=== PATIENT | male | born 1980 | race Caucasian/White ===

== ENCOUNTER 2017-05-19 14:53 | Emergency (ER) | payer OTHER ==
[~2017-05-19 14:53] MED LIST: ZOFR4TAB3 SL
[2017-05-19 15:41] VITALS: BP 139/84; PULSE 115; RESP 20; TEMP 99; O2SAT 99
[2017-05-19] MEDS ORDERED: CEPHALEXIN MONOHYDRATE 500 MG CAP PO ONE (20:30)
[2017-05-19] MEDS ORDERED: SULFAMETHOXAZOLE-TRIMETHOPRIM DS 800-160 MG TAB PO ONE (20:30)
[2017-05-19] MEDS ORDERED: LIDOCAINE HCL 1% PF 30 ML VIAL INFIL ONE (20:30)
[2017-05-19] MEDS ORDERED: IBUPROFEN 800 MG TAB PO ONE (20:30)
--- NOTE | 2017-05-19 20:44 | PD ---
HPI Chief Complaint: Skin Problem Time Seen by Provider: 20:15 Travel History International Travel<30 days: No Contact w/Intl Traveler<30days: No Traveled to known affect area: No History of Present Illness HPI 36-year-old male with PMH of neurofibromatosis, blindness presents to the ED for evaluation of 7/10 pain of right arm and left back. Patient states that he noted skin changes in this area. He cannot identify no acute injury. He denies history of MRSA. Denies fever, chills, nausea, vomiting. No treatment attempts at home. PFSH Past Medical History Neurologic: Yes (NEUROFIBROMYTOSIS) Past Surgical History Oral Surgery: Yes Other Surgery: Yes (FIXED DETACHED RETINA, SKIN GRAFTS, CYST DRAINED) Social History Alcohol Use: Yes (1-4 BEER A DAY) Tobacco Use: Yes (1 PPD) Substance Use: Yes (MARIJUANA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 Reported Meds & Prescriptions Reported Meds & Active Scripts Active Ibuprofen 800 Mg Tab 800 Mg PO Q8H PRN Keflex (Cephalexin) 500 Mg Cap 500 Mg PO Q6H 7 Days Bactrim DS (Sulfamethoxazole-Trimethoprim) 800-160 Mg Tab 1 Tab PO BID Zofran ODT (Ondansetron HCl) 4 Mg Tab 4 Mg SL Q6HR PRN FOR NAUSEA/VOMITING Review of Systems Except as stated in HPI: all other systems reviewed are Neg Physical Exam Narrative GENERAL: Well-nourished, well-developed patient. SKIN: Focused skin assessment warm/dry. Scattered polypoid skin lesions over the entire skin surface. SKIN: There is an indurated area in the posterior right upper arm which measures about 2 cm in diameter. It is fluctuant but there is no pointing or drainage. There is a zone of inflammation around it but no lymphangitis SKIN: There is an indurated area in the left lower back which measures about 2 cm in diameter. It is fluctuant but there is no pointing or drainage. There is a zone of inflammation around it but no lymphangitis. HEAD: Normocephalic. EYES: No scleral icterus. No injection or drainage. NECK: Supple, trachea midline. No JVD or lymphadenopathy. CARDIOVASCULAR: Regular rate and rhythm without murmurs, gallops, or rubs. RESPIRATORY: Breath sounds equal bilaterally. No accessory muscle use. GASTROINTESTINAL: Abdomen soft, non-tender, nondistended. MUSCULOSKELETAL: No cyanosis, or edema. BACK: Nontender without obvious deformity. No CVA tenderness. Data Data Last Documented VS Vital Signs Date Time Temp Pulse Resp B/P (MAP) Pulse Ox O2 Delivery O2 Flow Rate FiO2 05/19/17 15:41 99.0 115 20 139/84 (102) 99 Orders Orders Lidocaine Pf 1% Inj (Xylocaine-Mpf 1% In (05/19/17 20:30) Abscess Culture And Gram Stain (05/19/17 20:30) Abscess Culture And Gram Stain (05/19/17 20:30) Ibuprofen (Motrin) (05/19/17 20:30) Sulfamet-Trimeth Ds 800-160 Mg (Bactrim (05/19/17 20:30) Cephalexin (Keflex) (05/19/17 20:30) Ed Discharge Order (05/19/17 21:17) [facility] Medical Decision Making Medical Screen Exam Complete: Yes Emergency Medical Condition: Yes Differential Diagnosis Folliculitis versus abscess versus cellulitis versus other Narrative Course 36-year-old male with PMH of neurofibromatosis, blindness presents to the ED for evaluation of 7/10 pain of right arm and left back. Patient states that he noted skin changes in this area. He cannot identify no acute injury. He denies history of MRSA. Denies fever, chills, nausea, vomiting. Patient afebrile on presentation. On exam the patient has polypoid nodules all over the entire skin surface. There is a small abscess on the right arm and another on the left lower back. Abscess I&D was performed. Please see my procedure note for details. Patient's prescribed Bactrim and Keflex, first dose administered in the ED's. He is instructed to return to the ED in 48 hours for wound recheck and packing removal. He indicated understanding of instructions. He is agreeable to the care plan. He is stable and discharged home. Procedures Procedure Narrative INCISION AND DRAINAGE OF ABSCESS: The area was prepped and was sterilely draped. A subcutaneous wheal of 1 % Xylocaine with a total number two mL was used to anesthetize the area properly. A number 11 scalpel was used to make a 1 -cm incision across the area of the abscess. The abscess was drained, complex loculations were broken down, and irrigated with normal saline. Cultures were obtained. Quarter inch iodoform packing was placed in the wound. Sterile dressing applied. Patient advised to have packing removed in two days. INCISION AND DRAINAGE OF ABSCESS: The area was prepped and was sterilely draped. A subcutaneous wheal of 1 % Xylocaine with a total number two mL was used to anesthetize the area properly. A number 11 scalpel was used to make a 1 -cm incision across the area of the abscess. The abscess was drained, complex loculations were broken down, and irrigated with normal saline. Cultures were obtained. Quarter inch iodoform packing was placed in the wound. Sterile dressing applied. Patient advised to have packing removed in two days. Diagnosis Primary Impression: Abscess Referrals: Primary Care Physician Additional Instructions: Keep the dressing on for the next 48 hours. Return to the ED in 48 hours for wound recheck and packing removal. Begin antibiotics tonight and take them until every pill is gone. Ibuprofen as prescribed as needed for pain. Return to the ED for worsening symptoms or any urgent or emergent medical condition. Med/Other Pt SpecificInfo: Prescription(s) given Scripts Ibuprofen (Ibuprofen) 800 Mg Tab 800 MG PO Q8H Y for Pain/Inflammation, #15 TAB 0 Refills Prov: Raymond Mcgee MD 05/19/17 Cephalexin (Keflex) 500 Mg Cap 500 MG PO Q6H for Infection for 7 Days, #28 CAP 0 Refills Prov: Raymond Mcgee MD 05/19/17 Sulfamethoxazole-Trimethoprim (Bactrim DS) 800-160 Mg Tab 1 TAB PO BID for Infection, #14 TAB 0 Refills Prov: Raymond Mcgee MD 05/19/17 Disposition: 01 DISCHARGE HOME Condition: Stable Valeria Douglass May 19, 2017 20:44
[2017-05-19] MEDS ORDERED: CEPH-460 PO (20:45)
[2017-05-19] MEDS ORDERED: BACT800T5 PO (20:45)
[2017-05-19] MEDS ORDERED: IBUP1TAB7 PO (20:45)
== END 2017-05-19 21:28 | disposition home or self-care (01) ==
LOC: NEPK 14:53
DX: L02.413 Cutaneous abscess of right upper limb (principal); L02.212 Cutaneous abscess of back [any part, except buttock and flank]; B95.62 Methicillin resistant Staphylococcus aureus infection as the cause of diseases classified elsewhere; Q85.00 Neurofibromatosis, unspecified; H54.7 Unspecified visual loss; F17.200 Nicotine dependence, unspecified, uncomplicated; F12.90 Cannabis use, unspecified, uncomplicated
CPT/HCPCS: 10061; 86403; 87070; 87186; 87205

== ENCOUNTER 2017-05-21 12:08 | Emergency (ER) | payer OTHER ==
[~2017-05-21] VITALS: Ht 182.9 cm; Wt 104.8 kg
[~2017-05-21 12:08] MED LIST changes: +BACT800T5 PO; +CEPH-460 PO; +IBUP1TAB7 PO
[2017-05-21 12:10] VITALS: BP 138/71; PULSE 78; RESP 16; TEMP 97.5; O2SAT 99
--- NOTE | 2017-05-21 12:37 | PD ---
HPI Chief Complaint: Wound/Suture/Staple Re-Check Time Seen by Provider: 12:25 Travel History International Travel<30 days: No Contact w/Intl Traveler<30days: No Traveled to known affect area: No History of Present Illness HPI 36-year-old male presents to the emergency department for abscess recheck and packing removal. He had abscesses incised and drained to his right upper arm and left lower back on May 19. He has been taking Keflex and Bactrim as prescribed. He denies fever or vomiting. States he still having pain to the areas and rates pain 5/10. Describes it as a throbbing sensation. Has not been taking any medications or trying any treatments for his pain. Says he does not want to take anything for his pain. No known aggravating or relieving factors. No primary care provider. Allergies to lobster. History of neurofibromatosis and blindness. Has no other medical complaints. No other modifying factors or associated signs and symptoms. PFSH Past Medical History Diminished Hearing: No Neurologic: Yes (NEUROFIBROMYTOSIS) Radiation Therapy: Yes Tetanus Vaccination: > 5 Years Influenza Vaccination: No Past Surgical History Oral Surgery: Yes Other Surgery: Yes (FIXED DETACHED RETINA, SKIN GRAFTS, CYST DRAINED) Social History Alcohol Use: Yes (Occ.) Tobacco Use: Yes (1-2 PPD) Substance Use: Yes (Marijuana occ. 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 No lymphangitis. HEAD: Atraumatic. Normocephalic. EYES: Pupils equal and round. No scleral icterus. No injection or drainage. ENT: Mucosa pink and moist. Airway patent. NECK: Trachea midline. CARDIOVASCULAR: Regular rate. RESPIRATORY: No accessory muscle use. GASTROINTESTINAL: Rounded. MUSCULOSKELETAL: No obvious deformities. No clubbing. No cyanosis. No edema. NEUROLOGICAL: Awake and alert. Oriented 3. No obvious cranial nerve deficits. Motor grossly within normal limits. Normal speech. PSYCHIATRIC: Appropriate mood and affect; insight and judgment normal. Data Data Last Documented VS Vital Signs Date Time Temp Pulse Resp B/P (MAP) Pulse Ox O2 Delivery O2 Flow Rate FiO2 05/21/17 12:10 97.5 78 16 138/71 (93) 99 Orders Orders Wound Care (05/21/17 12:37) Ed Discharge Order (05/21/17 12:37) MDM Medical Decision Making Medical Screen Exam Complete: Yes Emergency Medical Condition: Yes Medical Record Reviewed: Yes Differential Diagnosis Encounter for abscess recheck, encounter for abscess packing removal, wound recheck, medical clearance Narrative Course 36-year-old male presents for abscess recheck and packing removal after incision and drainage on May 19. I reviewed his medical record and his wound culture grew out MRSA. I informed the patient of this finding and discussed MRSA. Iodoform packing removed. Patient tolerated well. Instructed patient he can stop Keflex. Instructed to continue Bactrim. Clean dressings applied to both areas. Instructed patient to follow up with primary care provider. Patient verbalizes understanding and agreement with treatment plan. Patient is medically cleared and stable for discharge. Discussed reasons to return to the emergency department. Patient agrees with treatment plan. The patients vital signs are stable and the patient is stable for outpatient follow-up and treatment. Patient discharged home, stable and in no acute distress. Diagnosis Primary Impression: Encounter for recheck of abscess following incision and drainage Additional Impression: Encounter for abscess packing removal Referrals: [facility] Primary Care Physician Patient Instructions: Abscess (ED), Abscess Follow-up (ED), General Instructions Additional Instructions: You may Stop taking Keflex Continue Bactrim and complete full course of antibiotic Warm compresses to the affected area Keep area clean and dry Ibuprofen or Tylenol as directed and as needed for pain and inflammation Follow-up with primary care provider Return to emergency department immediately with worsening of symptoms Med/Other Pt SpecificInfo: Med Stopped, No Meds Exist/No RX given Disposition: DISCHARGE HOME Condition: Stable Melva Goodrich May 21, 2017 12:37
== END 2017-05-21 12:52 | disposition home or self-care (01) ==
LOC: PHEFT 12:08
DX: Z48.817 Encounter for surgical aftercare following surgery on the skin and subcutaneous tissue (principal); L02.212 Cutaneous abscess of back [any part, except buttock and flank]; B95.62 Methicillin resistant Staphylococcus aureus infection as the cause of diseases classified elsewhere
CPT/HCPCS: 99281

== ENCOUNTER 2017-05-29 14:26 | Emergency (ER) | payer OTHER ==
[~2017-05-29] VITALS: Ht 182.9 cm; Wt 105.5 kg
[~2017-05-29 14:26] MED LIST changes: -IBUP1TAB7 PO; -ZOFR4TAB3 SL
[2017-05-29 14:53] VITALS: BP 138/80; PULSE 93; RESP 16; TEMP 98.5; O2SAT 98
[2017-05-29] MEDS ORDERED: BACT800T5 PO (16:25)
--- NOTE | 2017-05-29 16:25 | PD ---
HPI Chief Complaint: Skin Problem Time Seen by Provider: 15:43 Travel History International Travel<30 days: No Contact w/Intl Traveler<30days: No Traveled to known affect area: No History of Present Illness HPI 36-year-old male here for recheck of an abscess to his right upper extremity. Several weeks ago he had the area incised and drained and was put on Bactrim and Keflex. He reports he was compliant with the antibiotics and the abscess improved. Several days ago he noticed that the area began to become tender and started to drain again. He denies fever chills. According to prior culture and Gram stain the wound grew out MRSA. Symptom severity is mild. No aggravating or alleviating factors. PFSH Past Medical History Medical History: Denies Significant Hx Diminished Hearing: No Neurologic: Yes (NEUROFIBROMYTOSIS) Radiation Therapy: Yes Tetanus Vaccination: Unknown Influenza Vaccination: No ?: Not Past Surgical History Oral Surgery: Yes Other Surgery: Yes (FIXED DETACHED RETINA, SKIN GRAFTS, CYST DRAINED) Social History Alcohol Use: Yes (Occ.) Tobacco Use: Yes (1-2 PPD) Substance Use: Yes (Marijuana occ. 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 Reported Meds & Prescriptions Reported Meds & Active Scripts Active Bactrim DS (Sulfamethoxazole-Trimethoprim) 800-160 Mg Tab 1 Tab PO BID Keflex (Cephalexin) 500 Mg Cap 500 Mg PO Q6H 7 Days Bactrim DS (Sulfamethoxazole-Trimethoprim) 800-160 Mg Tab 1 Tab PO BID Review of Systems Except as stated in HPI: all other systems reviewed are Neg General / Constitutional: No: Fever Eyes: No: Visual changes HENT: No: Headaches Cardiovascular: No: Chest Pain or Discomfort Respiratory: No: Shortness of Breath Gastrointestinal: No: Abdominal Pain Genitourinary: No: Dysuria Musculoskeletal: No: Pain Neurologic: No: Weakness Physical Exam Narrative GENERAL: Alert and well-appearing 36-year-old male SKIN: Mildly indurated area measuring approximately 3 cm to the right lateral upper extremity with a central opening and a scant amount of yellow drainage. No surrounding cellulitis. No lymphangitis. No fluctuance. HEAD: Normocephalic. EYES: No injection or drainage. NECK: Supple MUSCULOSKELETAL: No cyanosis, or edema. See skin note above Data Data Last Documented VS Vital Signs Date Time Temp Pulse Resp B/P (MAP) Pulse Ox O2 Delivery O2 Flow Rate FiO2 05/29/17 14:53 98.5 93 16 138/80 (99) 98 MDM Medical Decision Making Medical Screen Exam Complete: Yes Emergency Medical Condition: Yes Differential Diagnosis Abscess, cellulitis, wound recheck Narrative Course 36-year-old male here for recurrent abscess to the right upper extremity. The area was originally incised and drained on 05/19/17. He reports compliance with antibiotics. The symptoms resolved and then returned several days ago. He is nontoxic appearing. The area is mildly indurated. No fluctuance. Small amount of drainage from prior incision site. He will be put back on Bactrim. Diagnosis Primary Impression: Abscess Referrals: [facility] Additional Instructions: Antibiotics as directed. Continue to keep the area covered with a bandage Return if he develop new or worsening symptoms Scripts Sulfamethoxazole-Trimethoprim (Bactrim DS) 800-160 Mg Tab 1 TAB PO BID for Infection, #20 TAB 0 Refills Prov: Isatu Singh 05/29/17 Disposition: 01 DISCHARGE HOME Condition: Stable Isatu Singh May 29, 2017 16:25
== END 2017-05-29 17:10 | disposition home or self-care (01) ==
LOC: PHEFT 14:26
DX: L02.413 Cutaneous abscess of right upper limb (principal); Q85.00 Neurofibromatosis, unspecified; F17.210 Nicotine dependence, cigarettes, uncomplicated
CPT/HCPCS: 99283

== ENCOUNTER 2017-07-08 21:53 | Emergency (ER) | payer OTHER ==
[~2017-07-08] VITALS: Ht 185.4 cm; Wt 104.5 kg
[2017-07-08 21:58] VITALS: BP 110/71; PULSE 92; RESP 16; TEMP 98.5; O2SAT 98
[2017-07-08] MEDS ORDERED: VANCOMYCIN INJ 1,000 MG in SODIUM CHLOR 0.9% 250 ML INJ 250 ML IV STA (22:06)
--- NOTE | 2017-07-08 22:13 | PD ---
HPI Chief Complaint: Skin Problem Time Seen by Provider: 22:06 Travel History International Travel<30 days: No Contact w/Intl Traveler<30days: No History of Present Illness HPI 36-year-old male patient with history of neurofibromatosis, MRSA skin infections , presents to the ER today because he has had several weeks history of rashes to his lower back area and arms, states that he has had this issue on and off, and it has turned out to be an MRSA skin infection in the past. He states that there is a spot on his left lower back area that is much more tender, states that he thinks he has an infection there again. He denies any fevers, or other issues. Modifying Factors: None Associated Signs & Symptoms: Skin infections on the lower back, bilateral arms Risk Factors: MRSA skin infection, neurofibromatosis PFSH Past Medical History Diminished Hearing: No Neurologic: Yes (NEUROFIBROMYTOSIS) Radiation Therapy: Yes Past Surgical History Oral Surgery: Yes Other Surgery: Yes (FIXED DETACHED RETINA, SKIN GRAFTS, CYST DRAINED) Social History Alcohol Use: Yes (Occ.) Tobacco Use: Yes (1-2 PPD) Substance Use: Yes (Marijuana occ. 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 Reported Meds & Prescriptions Reported Meds & Active Scripts Active Review of Systems Except as stated in HPI: all other systems reviewed are Neg Physical Exam Narrative GENERAL: Well-developed middle-age male patient with neurofibromatosis skin lesions notable, previous diagnosis, left eye blind. Awake and oriented 3. SKIN: Focused skin assessment warm/dry. Multiple neurofibromatosis lesions throughout the body. Excoriations notable behind both elbow, mildly tender to palpation with no underlying fluctuance. Notable excoriation, erythema, and tenderness over the lower back area without underlying fluctuance. HEAD: Atraumatic. Normocephalic. EYES: Left corneal scarring, left eye blind. ENT: No nasal bleeding or discharge. Mucous membranes pink and moist. NECK: Trachea midline. No JVD. Supple. CARDIOVASCULAR: Regular rate and rhythm. No murmur appreciated. RESPIRATORY: No accessory muscle use. Clear to auscultation. Breath sounds equal bilaterally. GASTROINTESTINAL: Abdomen soft, non-tender, nondistended. Hepatic and splenic margins not palpable. MUSCULOSKELETAL: No obvious deformities. No clubbing. No cyanosis. No edema. NEUROLOGICAL: Awake and alert. No obvious cranial nerve deficits. Motor grossly within normal limits. Normal speech. PSYCHIATRIC: Appropriate mood and affect; insight and judgment normal. Data Data Last Documented VS Vital Signs Date Time Temp Pulse Resp B/P (MAP) Pulse Ox O2 Delivery O2 Flow Rate FiO2 07/08/17 22:41 96 Room Air 07/08/17 21:58 98.5 92 16 110/71 (84) Orders Orders Sepsis Workup Initiated (07/08/17 ) Complete Blood Count With Diff (07/08/17 22:06) Comprehensive Metabolic Panel (07/08/17 22:06) Lactic Acid Sepsis Protocol (07/08/17 22:06) Blood Culture (07/08/17 22:06) Blood Glucose (07/08/17 22:06) Ecg Monitoring (07/08/17 22:06) Iv Access Insert/Monitor (07/08/17 22:06) Oximetry (07/08/17 22:06) Oxygen Administration (07/08/17 22:06) Vancomycin Inj (Vancomycin Inj) (07/08/17 22:06) Ed Discharge Order (07/08/17 23:10) Labs Laboratory Tests Test 07/08/17 22:26 White Blood Count 10.6 TH/MM3 Red Blood Count 5.67 MIL/MM3 Hemoglobin 16.7 GM/DL Hematocrit 48.6 % Mean Corpuscular Volume 85.7 FL Mean Corpuscular Hemoglobin 29.4 PG Mean Corpuscular Hemoglobin Concent 34.3 % Red Cell Distribution Width 13.7 % Platelet Count 225 TH/MM3 Mean Platelet Volume 8.6 FL Neutrophils (%) (Auto) 76.3 % Lymphocytes (%) (Auto) 14.3 % Monocytes (%) (Auto) 7.5 % Eosinophils (%) (Auto) 1.0 % Basophils (%) (Auto) 0.9 % Neutrophils # (Auto) 8.1 TH/MM3 Lymphocytes # (Auto) 1.5 TH/MM3 Monocytes # (Auto) 0.8 TH/MM3 Eosinophils # (Auto) 0.1 TH/MM3 Basophils # (Auto) 0.1 TH/MM3 CBC Comment DIFF FINAL Differential Comment Blood Urea Nitrogen 11 MG/DL Creatinine 0.88 MG/DL Random Glucose 89 MG/DL Total Protein 7.2 GM/DL Albumin 3.3 GM/DL Calcium Level 9.1 MG/DL Alkaline Phosphatase 135 U/L Aspartate Amino Transf (AST/SGOT) 9 U/L Alanine Aminotransferase (ALT/SGPT) 23 U/L Total Bilirubin 0.4 MG/DL Sodium Level 139 MEQ/L Potassium Level 4.2 MEQ/L Chloride Level 108 MEQ/L Carbon Dioxide Level 26.1 MEQ/L Anion Gap 5 MEQ/L Estimat Glomerular Filtration Rate 97 ML/MIN Lactic Acid Level 1.0 mmol/L MDM Medical Decision Making Medical Screen Exam Complete: Yes Emergency Medical Condition: Yes Medical Record Reviewed: Yes Interpretation(s) Laboratory Tests Test 07/08/17 22:26 Neutrophils (%) (Auto) 76.3 % (16.0-70.0) Neutrophils # (Auto) 8.1 TH/MM3 (1.8-7.7) Albumin 3.3 GM/DL (3.4-5.0) Alkaline Phosphatase 135 U/L (45-117) Aspartate Amino Transf (AST/SGOT) 9 U/L (15-37) Chloride Level 108 MEQ/L (98-107) Differential Diagnosis Cellulitis versus sepsis versus abscess Narrative Course I do not see any signs of obvious abscess at this time. He does have a small pustule in the left lower back area but no underlying abscess at this time. It appears that there is cellulitis there. Lab work did not indicate any underlying sepsis. Patient was given IV vancomycin in the ER. At this point, my plan would be to release him with follow-up to primary care physician and dermatology. He should return in 2 days to get a wound check or sooner if things are worsening. The plan was discussed with him he states understanding. Diagnosis Primary Impression: Cellulitis of lower back Med/Other Pt SpecificInfo: Prescription(s) given Scripts Ibuprofen (Ibuprofen) 600 Mg Tab 600 MG PO Q6H Y for Pain/Inflammation, #20 TAB 0 Refills Prov: iTm James MD 07/08/17 Sulfamethoxazole-Trimethoprim (Bactrim DS) 800-160 Mg Tab 1 TAB PO BID for Infection, #14 TAB 0 Refills Prov: Tim James MD 07/08/17 Disposition: DISCHARGE HOME Condition: Stable Tim James MD July 08, 2017 22:13
[2017-07-08 22:36] LABS: AUTOMATED NEUTROPHIL # 8.1 TH/MM3 (1.8-7.7); BASOPHIL # 0.1 TH/MM3 (0-0.2); BASOPHIL % 0.9 % (0.0-2.0); EOSINOPHIL # 0.1 TH/MM3 (0-0.4); HEMATOCRIT 48.6 % (39.0-51.0); HEMOGLOBIN 16.7 GM/DL (13.0-17.0); LYMPH % 14.3 % (9.0-44.0); LYMPHOCYTE # 1.5 TH/MM3 (1.0-4.8); MEAN CELL VOLUME 85.7 FL (80.0-100.0); MEAN CORPUSCULAR HEMOGLOBIN 29.4 PG (27.0-34.0); MEAN CORPUSCULAR HGB CONC 34.3 % (32.0-36.0); MEAN PLATELET VOLUME 8.6 FL (7.0-11.0); MONO % 7.5 % (0.0-8.0); MONOCYTE # 0.8 TH/MM3 (0-0.9); NEUT % 76.3 % (16.0-70.0); PLATELET COUNT 225 TH/MM3 (150-450); RED BLOOD COUNT 5.67 MIL/MM3 (4.50-5.90); RED CELL DISTRIBUTION WIDTH 13.7 % (11.6-17.2); WHITE BLOOD COUNT 10.6 TH/MM3 (4.0-11.0)
[2017-07-08 22:47] LABS: CHLORIDE 108 MEQ/L (98-107); SODIUM (NA) 139 MEQ/L (136-145)
[2017-07-08 22:50] LABS: ALBUMIN 3.3 GM/DL (3.4-5.0); BICARBONATE 26.1 MEQ/L (21.0-32.0); BLOOD UREA NITROGEN 11 MG/DL (7-18); CALCIUM 9.1 MG/DL (8.5-10.1); GLUCOSE,RANDOM 89 MG/DL (74-106)
[2017-07-08 22:53] LABS: ALT (GPT) 23 U/L (12-78); AST (GOT) 9 U/L (15-37); CREATININE 0.88 MG/DL (0.60-1.30); GLOMERULAR FILTRATION RATE 97 ML/MIN (>89)
[2017-07-08 22:55] LABS: TOTAL BILIRUBIN ADULT 0.4 MG/DL (0.2-1.0); TOTAL PROTEIN 7.2 GM/DL (6.4-8.2)
[2017-07-08 22:56] LABS: ALKALINE PHOSPHATASE 135 U/L (45-117)
[2017-07-08] MEDS ORDERED: IBUP-232 PO (23:12)
[2017-07-08] MEDS ORDERED: BACT800T5 PO (23:12)
[2017-07-08] MEDS ORDERED: IBUPROFEN 600 MG TAB PO ONE (23:15)
[2017-07-09 00:24] VITALS: BP 100/62; PULSE 85; RESP 16; O2SAT 99
[2017-07-09 01:27] VITALS: BP 108/64
== END 2017-07-09 01:41 | disposition home or self-care (01) ==
LOC: PHED 21:53
DX: L03.312 Cellulitis of back [any part except buttock and flank] (principal); Q85.00 Neurofibromatosis, unspecified; H54.40 Blindness, one eye, unspecified eye; F17.200 Nicotine dependence, unspecified, uncomplicated; F12.90 Cannabis use, unspecified, uncomplicated
CPT/HCPCS: 80053; 83605; 85025; 87040; 96365; 99284; J3370; J7050

== ENCOUNTER 2017-07-17 20:16 | Emergency (ER) | payer OTHER ==
[~2017-07-17] VITALS: Ht 182.9 cm; Wt 108.7 kg
[~2017-07-17 20:16] MED LIST changes: -CEPH-460 PO; +IBUP-232 PO
[2017-07-17 20:31] VITALS: BP 130/76; PULSE 105; RESP 20; TEMP 97.7; O2SAT 97
[2017-07-17] MEDS ORDERED: BACT800T5 PO (20:48)
--- NOTE | 2017-07-17 20:48 | PD ---
HPI Chief Complaint: Skin Problem Time Seen by Provider: 20:45 Travel History International Travel<30 days: No Contact w/Intl Traveler<30days: No Traveled to known affect area: No PFSH Past Medical History Diminished Hearing: No Neurologic: Yes (NEUROFIBROMYTOSIS) Radiation Therapy: Yes Tetanus Vaccination: < 5 Years Influenza Vaccination: No Past Surgical History Eye Surgery: Yes (many eye surgeries , tumors and detached retina) Oral Surgery: Yes Other Surgery: Yes (FIXED DETACHED RETINA, SKIN GRAFTS, CYST DRAINED) Social History Alcohol Use: Yes (Occ.) Tobacco Use: Yes (1-2 PPD) Substance Use: Yes (Marijuana occ. 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 Reported Meds & Prescriptions Reported Meds & Active Scripts Active Ibuprofen 600 Mg Tab 600 Mg PO Q6H PRN Bactrim DS (Sulfamethoxazole-Trimethoprim) 800-160 Mg Tab 1 Tab PO BID Data Data Last Documented VS Vital Signs Date Time Temp Pulse Resp B/P (MAP) Pulse Ox O2 Delivery O2 Flow Rate FiO2 07/17/17 20:31 97.7 105 20 130/76 (94) 97 MDM Medical Decision Making Medical Screen Exam Complete: Yes Emergency Medical Condition: Yes Differential Diagnosis Abscess, cellulitis, eczema, contact dermatitis Narrative Course 36-year-old male here for evaluation of cellulitis to both arms and low back. He reports a history of MRSA. He was seen in the emergency department a week ago and discharged home on Bactrim. He reports compliance with medication. He was only given a 7 day supply and is concerned he needs a longer treatment as he usually requires at least 10 days of antibiotics in the past. On exam he has appears to be resolving cellulitis versus an eczema type rash. He is afebrile. Nontoxic-appearing. He will be given 3 more day supply of Bactrim. Diagnosis Primary Impression: Cellulitis Qualified Codes: L03.90 - Cellulitis, unspecified Referrals: [facility] Additional Instructions: Continue Bactrim as directed. Follow-up the [facility]. Return if he develop fever, chills, worsening symptoms Scripts Sulfamethoxazole-Trimethoprim (Bactrim DS) 800-160 Mg Tab 1 TAB PO BID for Infection, #6 TAB 0 Refills Prov: Isatu Singh 07/17/17 Disposition: 01 DISCHARGE HOME Condition: Stable Isatu Singh July 17, 2017 20:48
== END 2017-07-17 21:01 | disposition home or self-care (01) ==
LOC: PHEFT 20:16
DX: L03.90 Cellulitis, unspecified (principal); F17.200 Nicotine dependence, unspecified, uncomplicated
CPT/HCPCS: 99283